=== PATIENT | female | born 1980 | race Hispanic/Latino ===

== ENCOUNTER 2017-07-26 14:10 | Emergency (ER) | payer MEDICAID ==
[2017-07-26 14:31] VITALS: O2SAT 100
--- NOTE | 2017-07-26 14:32 | ED PDOC ---
HPI: General Adult Time Seen by Provider: 07/26/17 14:30 Chief Complaint (Nursing): Chest Pain Chief Complaint (Provider): chest pain History Per: Patient Additional Complaint(s): 36-year-old female presents with mid-sternal chest pain that is worse with palpation that started this morning. Patient states she had several drinks last night and is not sure if this is a contributing factor. Patient is extremely anxious upon arrival secondary to her current symptoms. She is mildly short of breath with no dyspnea on exertion. Patient denies fever or chills. She has had slight dry cough for the past few days. Patient denies any drug use. Patient denies any suicidal or homicidal ideation. She denies any recent stressors. 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 - Family History Family History: States: No Known Family Hx - Living Arrangements Living Arrangements: With Friends/Others - Social History Current smoker - smoking cessation education provided: No Alcohol: Social Drugs: Denies - Home Medications Home Medications: Ambulatory Orders Medication Instructions Recorded Cyclobenzaprine [Cyclobenzaprine 10 mg PO TID PRN #20 tab 07/26/17 HCl] Levothyroxine [Synthroid] 1 tab PO DAILY 07/26/17 Naproxen [Naprosyn] 500 mg PO BID #20 tab 07/26/17 - Allergies Allergies/Adverse Reactions: Allergies Allergy/AdvReac Type Severity Reaction Status Date / Time No Known Allergies Allergy Verified 07/26/17 14:39 Review of Systems ROS Statement: Except As Marked, All Systems Reviewed And Found Negative Constitutional: Negative for: Fever, Chills Cardiovascular: Positive for: Chest Pain. Negative for: Palpitations Respiratory: Positive for: Cough, Shortness of Breath. Negative for: SOB with Exertion, Wheezing Gastrointestinal: Negative for: Nausea, Vomiting Neurological: Negative for: Headache, Dizziness Psych: Positive for: Anxiety, Other (drank etoh last night). Negative for: Suicidal ideation Physical Exam - Reviewed Nursing Documentation Reviewed: Yes Vital Signs Reviewed: Yes - Physical Exam Appears: Positive for: Well, Non-toxic, No Acute Distress Skin: Negative for: Rash Eye Exam: Positive for: Normal appearance Cardiovascular/Chest: Positive for: Regular Rate, Rhythm, Other (Moderate tenderness to anterior chest wall upon palpation) Respiratory: Positive for: Normal Breath Sounds. Negative for: Wheezing, Respiratory Distress Gastrointestinal/Abdominal: Positive for: Soft. Negative for: Tenderness, Distended, Guarding, Rebound Back: Negative for: L CVA Tenderness, R CVA Tenderness Extremity: Positive for: Normal ROM Neurologic/Psych: Positive for: Alert, Oriented, Mood/Affect (anxious) - Laboratory Results Result Diagrams: 07/26/17 14:54 07/26/17 14:54 Urine POC: Negative Urine dip results: Positive for: Blood (moderate, currently menstruating). Negative for: Leukocyte Esterase, Nitrate, Ketones, Glucose, Bilirubin, Protein - ECG O2 Sat by Pulse Oximetry: 100 Pulse Ox Interpretation: Normal - Other Rad CXR X-Ray: Interpreted by Me, Viewed By Me X-Ray Interpretation: no acute finding CT chest X-Ray: Read By Radiologist X-Ray Interpretation: no PE Medical Decision Making Medical Decision Makin36 year old with chest pain, anxious upon arrival, admits to drinking alcohol last night. Plan: court monitor EKG CXR CBC CMP BAL Trop D-Dimer IVF IV toradol UDS test Urine dip Patient was tachycardic upon arrival but heart rate normalized shortly after patient's arrival. Patient also states that she is less anxious now. Patient declined crisis consult, denies suicidal or homicidal ideation. 3:30 pm: Patient reports minimal improvement to pain after Toradol was given. D- dimer elevated, CT chest ordered, additional fluid bolus ordered along with oral Tylenol and tramadol. UDS is positive of amphetamines, patient takes adderall daily and has for several years. CT chest: no PE 5:30 pm - Patient feels much better after meds were given. Patient is aware of all diagnostic testing results, all questions answered. Prescriptions provided for Naprosyn and Flexeril. Patient was advised to follow up with primary care doctor and is aware she can return to ED any time if acutely worse. Vital signs prior to discharge are stable. Disposition - Clinical Impression Clinical Impression: Chest wall pain, Costochondritis - Patient ED Disposition Is Patient to be Admitted: No Counseled Patient/Family Regarding: Studies Performed, Diagnosis, Need For Followup, Rx Given - Disposition Referrals: Ridge Aly MD [Staff Provider] - Disposition Time: 17:36 Condition: IMPROVED Additional Instructions: Take prescription medications as directed as needed for pain. Rest affected area. Follow-up with primary doctor in 2-3 days or return to emergency department any time if acutely worse. Prescriptions: Cyclobenzaprine [Cyclobenzaprine HCl] 10 mg PO TID PRN #20 tab PRN Reason: Muscle Spasm Naproxen [Naprosyn] 500 mg PO BID #20 tab Instructions: Costochondritis Forms: [email or web address] ([place]) Results - Lab Results Lab Results: 07/26/17 07/26/17 07/26/17 14:54 14:54 14:54 WBC RBC Hgb Hct MCV MCH MCHC RDW Plt Count MPV Neut % (Auto) Lymph % (Auto) [place] % (Auto) Eos % (Auto) Baso % (Auto) Neut # (Auto) Lymph # (Auto) [place] # (Auto) Eos # (Auto) Baso # (Auto) D-Dimer, Quantitative 323 H Sodium 145 Potassium 3.9 Chloride 108 H Carbon Dioxide 23 Anion Gap 18 BUN 10 Creatinine 0.6 L Est GFR ( Amer) > 60 Est GFR (Non-Af Amer) > 60 Random Glucose 84 Calcium 9.0 Total Bilirubin 0.5 AST 33 ALT 38 Alkaline Phosphatase 58 Troponin I < 0.0120 Total Protein 8.0 Albumin 4.5 Globulin 3.5 Albumin/Globulin Ratio 1.3 Urine Opiates Screen Negative Urine Methadone Screen Negative Ur Barbiturates Screen Negative Ur Phencyclidine Scrn Negative Ur Amphetamines Screen Positive H U Benzodiazepines Scrn Negative U Oth Cocaine Metabols Negative U Cannabinoids Screen Negative Alcohol, Quantitative 51 H 07/26/17 14:54 WBC 11.7 H RBC 4.11 Hgb 13.3 Hct 39.0 MCV 94.8 MCH 32.3 H MCHC 34.1 RDW 13.1 Plt Count 265 MPV 8.9 Neut % (Auto) 71.8 Lymph % (Auto) 19.9 L [place] % (Auto) 5.9 Eos % (Auto) 1.5 Baso % (Auto) 0.9 Neut # (Auto) 8.4 H Lymph # (Auto) 2.3 [place] # (Auto) 0.7 Eos # (Auto) 0.2 Baso # (Auto) 0.1 D-Dimer, Quantitative Sodium Potassium Chloride Carbon Dioxide Anion Gap BUN Creatinine Est GFR ( Amer) Est GFR (Non-Af Amer) Random Glucose Calcium Total Bilirubin AST ALT Alkaline Phosphatase Troponin I Total Protein Albumin Globulin Albumin/Globulin Ratio Urine Opiates Screen Urine Methadone Screen Ur Barbiturates Screen Ur Phencyclidine Scrn Ur Amphetamines Screen U Benzodiazepines Scrn U Oth Cocaine Metabols U Cannabinoids Screen Alcohol, Quantitative
[2017-07-26] MEDS ORDERED: Sodium Chloride 0.9% 1,000 ML IV STA ×2 (14:41→15:37)
[2017-07-26 15:06] LABS: BASO # 0.1 K/uL (0.0-0.2); BASO % 0.9 % (0.0-2.0); EOS # 0.2 K/uL (0.0-0.7); EOS % 1.5 % (0.0-4.0); HEMOGLOBIN 13.3 g/dL (12.0-16.0); LYMPH # 2.3 K/uL (1.0-4.3); LYMPH % 19.9 % (20.0-40.0); MEAN CELL VOLUME 94.8 fl (81.0-99.0); MEAN CORPUSCULAR HEMOGLOBIN 32.3 pg (27.0-31.0); MEAN CORPUSCULAR HGB CONC 34.1 g/dL (33.0-37.0); MEAN PLATELET VOLUME 8.9 fl (7.2-11.7); MONO # 0.7 K/uL (0.0-0.8); MONO % 5.9 % (0.0-10.0); NEUT # 8.4 K/uL (1.8-7.0); NEUT % 71.8 % (50.0-75.0); NRBC % 0.1 % (0.0-0.0); RBC 4.11 Mil/uL (3.80-5.20); RED CELL DISTRIBUTION WIDTH 13.1 % (11.5-14.5); WHITE BLOOD COUNT 11.7 K/uL (4.8-10.8)
[2017-07-26 15:13] LABS: ALB/GLOB RATIO 1.3 (1.0-2.1); ALBUMIN 4.5 g/dL (3.5-5.0); ALT/SGPT 38 U/L (9-52); AST/SGOT 33 U/L (14-36); BLOOD UREA NITROGEN 10 mg/dl (7-17); GFR AFRICAN-AMERICAN > 60; GFR NON-AFRICAN AMERICAN > 60
[2017-07-26 15:32] LABS: BARBITURATES, UR NEGATIVE (NEGATIVE); BENZODIAZEPINES, UR NEGATIVE (NEGATIVE); OPIATES, UR NEGATIVE (NEGATIVE); PHENCYCLIDINE, UR NEGATIVE (NEGATIVE)
[2017-07-26] MEDS ORDERED: Iodixanol 320 MG/ML 100 ML BOTTLE IV ONE (15:46)
[2017-07-26] MEDS ORDERED: Sodium Chloride 0.9% 100 ML ONE (15:46)
--- NOTE | 2017-07-26 16:33 | RAD ---
HISTORY: chest pain COMPARISON: No prior. FINDINGS: LUNGS: Minor passive/ dependent atelectasis both lung bases. PLEURA: No significant pleural effusion identified, no pneumothorax apparent. CARDIOVASCULAR: Normal. OSSEOUS STRUCTURES: No significant abnormalities. VISUALIZED UPPER ABDOMEN: Normal. OTHER FINDINGS: None. IMPRESSION: Findings suggest minor passive/dependent type atelectasis both lung bases.
--- NOTE | 2017-07-26 17:10 | CT ---
PROCEDURE: CT Chest with contrast (Pulmonary Angiogram) HISTORY: Chest pain; SOB. COMPARISON: [facility] in made with chest radiograph obtained earlier same day apparent TECHNIQUE: Axial computed tomography images were obtained of the chest in the pulmonary arterial phase of enhancement. Coronal and sagittal reformatted images were created and reviewed. Intravenous contrast dose: 90 cc Visipaque 320 Radiation dose: Total exam DLP = 419.40 mGy-cm. This CT exam was performed using one or more of the following dose reduction techniques: Automated exposure control, adjustment of the mA and/or kV according to patient size, and/or use of iterative reconstruction technique. FINDINGS: PULMONARY ARTERIES: The visualized pulmonary trunk, right and left main, lobar, segmental and proximal subsegmental branches of the pulmonary arteries appear relatively well opacified with no definitive filling defects seen to suggest acute central pulmonary embolus. Pulmonary trunk measures approximately 2.9 cm AORTA: Ascending thoracic aorta measures approximately 3.06 cm and descending thoracic aorta measures approximately 2.03 cm. LUNGS: Minor passive -dependent atelectasis both posterior lower lung zones. PLEURAL SPACES: Unremarkable. No effusion or pneumothorax. HEART: Heart size within range of normal. No significant pericardial effusion. . LYMPH NODES: No significant mediastinal or hilar adenopathy. BONES, CHEST WALL: Minor multilevel degenerative spondylosis of the thoracic spine. There are no acute compression fractures no retropulsed fragments. In situ bilateral breast implants. OTHER FINDINGS: Tiny hiatal hernia. IMPRESSION: No evidence of acute central pulmonary embolus. Minor passive atelectasis both posterior lower lung zones.
[2017-07-26 17:56] VITALS: BP 131/83; PULSE 96; RESP 18; TEMP 98.2
--- NOTE | 2017-07-27 10:30 | CARD ---
APPROVED REPORT EKG Measurement Heart [id number] <Conclusion> Sinus tachycardia Nonspecific T wave abnormality Abnormal ECG
== END 2017-07-26 18:03 | disposition home or self-care (01) ==
LOC: H.ER 14:10
DX: M94.0 Chondrocostal junction syndrome [Tietze] (principal); E03.9 Hypothyroidism, unspecified; F90.9 Attention-deficit hyperactivity disorder, unspecified type
CPT/HCPCS: 71045; 71275; 80053; 80320; 80324; 80345; 80346; 80349; 80353; 80358; 80361; 81025; 83992; 84484; 85025; 85378; 93005; 96361; 96374; 99284; J1885; J7040; Q9967